=== PATIENT | male | born 1950 | race Asian ===

== ENCOUNTER 2019-10-09 18:23 | Emergency (ER) | payer OTHER ==
[~2019-10-09] VITALS: Ht 170.2 cm; Wt 66.7 kg
[2019-10-09 18:51] VITALS: BP 152/81; Ht 170.2 cm; Wt 66.7 kg
== END 2019-10-09 20:56 | disposition home or self-care (01) ==
LOC: ED 18:23
DX: S60.312A Abrasion of left thumb, initial encounter (principal); W31.2XXA Contact with powered woodworking and forming machines, initial encounter; Y93.89 Activity, other specified; Y92.89 Other specified places as the place of occurrence of the external cause; Y99.8 Other external cause status
CPT/HCPCS: 90715